=== PATIENT | female | born 1995 | race Caucasian/White ===

== ENCOUNTER 2023-01-10 09:21 | Outpatient (CLI) | payer SELFPAY | END 2023-01-10 09:22 | disposition home or self-care (01) | LOC: FRMREF 09:22 | PROVIDERS: PCP Physician Assistant Medical; Visit Provider Physician Assistant Medical | DX: Z00.00 Encounter for general adult medical examination without abnormal findings (principal); E03.8 Other specified hypothyroidism | CPT/HCPCS: 84443 ==

== ENCOUNTER 2023-05-30 09:35 | Outpatient (REF) | payer BC, SELFPAY | END 2023-05-30 09:36 | disposition home or self-care (01) | LOC: NFLDREF 09:35 | PROVIDERS: PCP Physician Assistant Medical; Referring Provider Physician Assistant Medical; Visit Provider Physician Assistant Medical | DX: E03.8 Other specified hypothyroidism (principal) | CPT/HCPCS: 84439; 84443; 84481 ==